=== PATIENT | male | born 2000 | race African-American/Black ===

== ENCOUNTER 2022-06-07 17:36 | Emergency (ER) | payer OTHER ==
[~2022-06-07] VITALS: Ht 177.8 cm; Wt 80.2 kg
[2022-06-07] MEDS ORDERED: NEOSPORIN OINT 0.9 GM PKT TOP ONE (18:35)
[2022-06-07] MEDS ORDERED: LIDOCAINE W/EPINEPHRINE 1% 20ML VIAL SC ONE (18:35)
[2022-06-07 19:32] VITALS: BP 132/60
== END 2022-06-07 19:37 | disposition home or self-care (01) ==
LOC: M ED 17:36
DX: S01.112A Laceration without foreign body of left eyelid and periocular area, initial encounter (principal); Y99.1 Military activity; W22.8XXA Striking against or struck by other objects, initial encounter

== ENCOUNTER 2023-11-23 14:44 | Observation (INO) | payer OTHER ==
[~2023-11-23] VITALS: Ht 177.8 cm; Wt 83.5 kg
[2023-11-23] MEDS ORDERED: ACETAMINOPHEN TAB 650MG DOSE (2X325MG) PO PRN (15:15)
[2023-11-23 19:45] VITALS: BP 132/55; TEMP 97.6; O2SAT 98
[2023-11-23] MEDS ORDERED: OXYC1TAB23 PO (19:50)
[2023-11-23] MEDS ORDERED: CEPH500C PO (19:50)
[2023-11-23] MEDS ORDERED: HOME MED LIST COMPLETE! XX SCH (19:55)
[2023-11-23] MEDS: ceFAZolin SOD 1 GM in D5W MINI-BAG PLUS 50 ML IV SCH (22:12)
[2023-11-24 13:10] VITALS: BP 125/69; TEMP 97.9; O2SAT 98
[2023-11-24] MEDS ORDERED: fentaNYL 100 MCG/2 ML INJECTION As Ordered ONE (13:42)
[2023-11-24] MEDS ORDERED: MIDAZOLAM INJ 2MG/2ML VIAL As Ordered ONE (13:42)
[2023-11-24] MEDS ORDERED: propofoL 200 MG/20 ML VIAL As Ordered ONE (13:42)
[2023-11-24] MEDS ORDERED: LIDOCAINE 2% 100MG/5ML SDV (FOR ANES.) As Ordered ONE (13:42)
[2023-11-24] MEDS ORDERED: ceFAZolin 2 GM/D5W 50 ML IV BAG As Ordered ONE (13:47)
[2023-11-24] MEDS ORDERED: ONDANSETRON 4MG 2ML VIAL As Ordered ONE (14:17)
[2023-11-24] MEDS ORDERED: MORPHINE 2 MG/ML 1ML VIAL IV PRN (14:20)
[2023-11-24] MEDS ORDERED: fentaNYL 100 MCG/2 ML INJECTION IV PRN (14:20)
[2023-11-24] MEDS: LR 1,000 ML IV SCH (14:20)
[2023-11-24] MEDS ORDERED: ONDANSETRON 4MG 2ML VIAL IV PRN (14:20)
[2023-11-24] MEDS ORDERED: ACETAMINOPHEN 1000MG 100ML IV BAG As Ordered ONE (14:25)
[2023-11-24] MEDS ORDERED: GLYCOPYRROLATE INJ 0.2 MG/ML 2 ML VIAL As Ordered ONE (14:43)
[2023-11-24] MEDS ORDERED: ePHEDrine SULFATE 25 MG/5 ML(5MG/ML) SYRINGE As Ordered ONE (14:45)
[2023-11-24] MEDS: BACITRACIN OINTMENT 30GM TUBE As Ordered ONE (15:38)
[2023-11-24] MEDS ORDERED: KETOROLAC 60MG 2ML VIAL As Ordered ONE (15:43)
[2023-11-24] MEDS: MEPERIDINE 25 MG/ML 1ML VIAL IV PRN (15:57)
[2023-11-24] MEDS ORDERED: oxyCODONE 5MG TAB PO PRN (16:00)
[2023-11-24 16:30] VITALS: BP 153/82; TEMP 97.9; O2SAT 100
[2023-11-24] MEDS: ACETAMINOPHEN TAB 650MG DOSE (2X325MG) PO PRN (16:33)
[2023-11-24 16:55] VITALS: BP 147/80; TEMP 98.2; O2SAT 96
[2023-11-24 18:35] VITALS: BP 130/64; TEMP 98.4; O2SAT 96
[2023-11-24] MEDS ORDERED: IBUPROFEN 600MG TAB PO PRN (22:00)
== END 2023-11-24 18:40 | disposition home or self-care (01) ==
LOC: PREINTOOBSV 15:19 → M MS5PR 19:07
PROVIDERS: ADMIT Orthopaedic Surgery Hand Surgery; ATTEND Orthopaedic Surgery Hand Surgery
DX: S62.302B Unspecified fracture of third metacarpal bone, right hand, initial encounter for open fracture (principal); W22.09XA Striking against other stationary object, initial encounter; Y92.89 Other specified places as the place of occurrence of the external cause; Y93.9 Activity, unspecified; Y99.9 Unspecified external cause status
CPT/HCPCS: 11012; 26437; 76000; 96365; 96366; J0131; J0665; J0690; J1100; J1885; J2175; J2250; J2405; J3010

== ENCOUNTER → 2023-11-23 | Outpatient (CLI) | payer OTHER ==
[~2023-11-23] MED LIST: CEPH500C PO; OXYC1TAB23 PO
== END ==
LOC: M RAD 11:34
PROVIDERS: ATTEND Physician Assistant
DX: M25.541 Pain in joints of right hand (principal); S62.332A Displaced fracture of neck of third metacarpal bone, right hand, initial encounter for closed fracture; X58.XXXA Exposure to other specified factors, initial encounter; Y92.9 Unspecified place or not applicable

== ENCOUNTER → 2024-01-10 | Outpatient (CLI) | payer OTHER | LOC: M SOG 12:53 | PROVIDERS: ATTEND Physician Assistant | DX: S62.302D Unspecified fracture of third metacarpal bone, right hand, subsequent encounter for fracture with routine healing (principal) ==

== ENCOUNTER → 2024-01-10 | Outpatient (CLI) | payer OTHER | LOC: M SOG 14:33 | PROVIDERS: ATTEND Orthopaedic Surgery Hand Surgery | DX: S62.302D Unspecified fracture of third metacarpal bone, right hand, subsequent encounter for fracture with routine healing (principal); Z53.9 Procedure and treatment not carried out, unspecified reason ==

== ENCOUNTER → 2024-02-21 | Outpatient (CLI) | payer OTHER | LOC: M SOG 07:59 | PROVIDERS: ATTEND Physician Assistant | DX: S62.302D Unspecified fracture of third metacarpal bone, right hand, subsequent encounter for fracture with routine healing (principal); Y93.9 Activity, unspecified; Y92.9 Unspecified place or not applicable ==